=== PATIENT | female | born 1990 | race Caucasian/White ===

== ENCOUNTER 2020-06-28 17:37 | Emergency (ER) | payer OTHER, SELFPAY ==
[2020-06-28 17:38] VITALS: BP 159/89; PULSE 100; PULSE 101; RESP 16; TEMP 36.6; O2SAT 98; BMI 50.6
--- NOTE | 2020-06-28 17:48 | CT_ITS ---
STUDY: CT ABDOMEN AND PELVIS WITHOUT CONTRAST REASON FOR EXAM: Female, 29 years old. LOW ABDOMEN PAIN,NAUSEA AND VOMITING,ELEVATED WBC,PREG TEST WAS NEGATIVE -- HX:DIVERTICULITIS,PRIOR APPENDECTOMY RADIATION DOSAGE (If Supplied By Facility): CTDIvol = ( 20.40 ) mGy, DLP = ( 1264.74 ) mGycm TECHNIQUE: Transaxial images were obtained from the dome of the diaphragm to the symphysis pubis without oral contrast, and without intravenous contrast. Sagittal and coronal images were reconstructed. Individualized dose optimization techniques were used for this CT. COMPARISON: None. FINDINGS: The visualized lung bases are unremarkable. The visualized portions of the heart are within normal limits. Normal liver. Normal gallbladder and extrahepatic biliary system. Normal spleen. Normal pancreas. Normal bilateral adrenal glands. Normal right kidney. Normal left kidney. Normal visualized stomach. Normal small intestine. There is mild sigmoid diverticulosis. There is perisigmoidal fatty stranding consistent with diverticulitis. There is no evidence of extraluminal gas or abnormal fluid collection. There is non-visualization of the appendix. Normal abdominal aorta. Normal inferior vena cava. Normal retroperitoneum. Normal urinary bladder. The uterus and adnexal structures are unremarkable. Normal abdominal wall. Normal osseous structures. CT/Abdomen/Pelvis W IV Cont ONLY IMPRESSION: 1. Sigmoid diverticulosis. Perisigmoid fatty stranding consistent with diverticulitis. There is no evidence of extraluminal gas or abnormal fluid collection in the region. 2. Nonvisualization of the appendix in accordance with history of appendectomy. Electronically Signed: Sandeep Burleson MD at 19:15 EDT , Service support ,
--- NOTE | 2020-06-28 17:49 | ED.VIS.GI ---
History of Present Illness Chief Complaint: Abd Pain Informant: Patient - Abdominal Pain/Flank Pain Onset: Today Context: Gradual Onset Timing: Continuous Quality: Aching Location: Diffuse - across lower abdomen, radiating into low back, nonlateralizing Current Severity: Moderate Maximum Severity: Severe Worsened by: Nothing Relieved by: - - maybe transiently better after a normal BM 1-2 hrs ago - Nausea/Vomiting/Emesis GI Symptom: Nausea, Vomiting Onset: Today Quality: Nonbilious. Negative for: Blood streaks, Coffee ground, Hematemesis - Diarrhea/Melena/Hematochezia GI Symptom: Negative for: Diarrhea, Melena, Hematochezia Associated Symptoms: Negative for: Dysuria, Frequency, Hematuria, Urgency Narrative: Patient states she started having lower abdominal pain today, it has worsened throughout the day. She had a normal bowel movement, she has been vomiting a couple times, denies any fevers or chills. No other recent illnesses. States she has missed a period or 2, she cannot remember when her last cycle was, she cannot tell if this is menstrual cramping or not, or feels like menstrual cramping, she states she knows this pain is more severe but cannot assess the quality. She states it also may be similar to a prior episode of diverticulitis that she was treated for as an inpatient, and then finished as an outpatient. She followed up with her doctor but never was referred for a colonoscopy, which she never has had. She denies any urinary or vaginal symptoms. - Past Medical History (1) Diverticulitis Status: Resolved Past Medical History - Allergies and Home Meds Allergies/Adverse Reactions: Allergies CILLIANS Allergy (Uncoded 11/07/17 13:29) Anaphylaxis Primary Care Physician: Luis Alberto Potter NP-C [Primary Care Provider] - Surgical History: appendectomy Lives: Spouse/ Significant Other Smoking Status: Never smoker - Family History Maternal Family History: Reports: Diabetes Paternal Family History: Reports: No pertinent history Review of Systems General: Denies: Chills, Fever, Sweats Eyes: Denies: Visual changes - bilaterally, Diplopia ENT: Denies: Rhinorrhea, Sore throat Cardiovascular: Denies: Chest pain, Palpitations Respiratory: Denies: Dyspnea, Cough, Dyspnea on exertion Gastrointestinal: Reports: Abdominal pain, Nausea, Vomiting. Denies: Diarrhea, Melena, Hematochezia Genitourinary: Denies: Dysuria, Hematuria, Frequency Musculoskeletal: Reports: Back pain. Denies: Extremity Pain Skin: Denies: Rash, Wounds Neurological: Denies: Headache, Weakness, Numbness Physical Exam Vital Signs/Narrative: Vital Signs Temp Pulse Resp BP Pulse Ox 06/28/20 17:38 97.8 F 100 16 159/89 H 98 Inital Vital Signs reviewed: Yes General: Well nourished, Well developed, Obese, No Acute Distress Head: Normocephalic, Atraumatic Eyes: Perrl, EOMI ENT: Moist mucous membranes, No rhinorrhea Neck: Supple, Nontender Cardiovascular: Regular rate, Regular rhythm, No murmurs Respiratory: No distress, CTA bilaterally, Chest nontender Abdomen: Soft, Nondistended, Normal bowel sounds, Tender - Both lower quadrants and left upper quadrant without any other areas of abdominal tenderness. Negative for: Guarding, Rebound tenderness, Pulsatile mass Back: Nontender, Normal Inspection. Negative for: CVA tenderness Extremities: Nontender, No edema. Negative for: Calf Tenderness Skin: Normal color, No rash, No Trauma Neurological: Alert, Oriented x3, Cranial nerves II-XII grossly intact, Normal Strength, Normal Sensation, Normal Gait Psychological: Normal affect, Normal Mood Diagnostic/Tx/Re-eval Impressions Abdomen/Pelvis CT 06/28/20 17:48 IMPRESSION: 1. Sigmoid diverticulosis. Perisigmoid fatty stranding consistent with diverticulitis. There is no evidence of extraluminal gas or abnormal fluid collection in the region. 2. Nonvisualization of the appendix in accordance with history of appendectomy. Electronically Signed: Sandeep Burleson MD at 19:15 EDT , Service support , 06/28/20 17:48 Abdomen/Pelvis W IV Cont ONLY [CT] Stat Laboratory Results 06/28/20 06/28/20 06/28/20 18:00 18:00 18:00 WBC 12.9 H RBC 5.02 Hgb 13.7 Hct 43.2 MCV 86.1 MCH 27.3 MCHC 31.7 L RDW Std Deviation 41.7 RDW Coeff of [place] 13.4 Plt Count 258 MPV 11.1 Immature Gran % (Auto) 0.500 Neut % (Auto) 65.2 Lymph % (Auto) 22.8 [place] % (Auto) 7.3 Eos % (Auto) 3.9 Baso % (Auto) 0.3 Absolute Neuts (auto) 8.4 H Absolute Lymphs (auto) 2.94 Nucleated RBC % 0 Sodium 141 Potassium 3.5 Chloride 107 Carbon Dioxide 28.0 Anion Gap 6 BUN 15 Creatinine 0.64 Estim Creat Clear Calc 228.61 Est GFR (MDRD) Af Amer 139 Est GFR (MDRD) Non-Af 114 BUN/Creatinine Ratio 23.4 H Glucose 105 Calcium 8.3 L Serum , Qual NEGATIVE Urine Color Urine Clarity Urine pH Ur Specific [place] Urine Protein Urine Glucose (UA) Urine Ketones Urine Occult Blood Urine Nitrite Urine Bilirubin Urine Urobilinogen Ur Leukocyte Esterase 06/28/20 19:08 WBC RBC Hgb Hct MCV MCH MCHC RDW Std Deviation RDW Coeff of [place] Plt Count MPV Immature Gran % (Auto) Neut % (Auto) Lymph % (Auto) [place] % (Auto) Eos % (Auto) Baso % (Auto) Absolute Neuts (auto) Absolute Lymphs (auto) Nucleated RBC % Sodium Potassium Chloride Carbon Dioxide Anion Gap BUN Creatinine Estim Creat Clear Calc Est GFR (MDRD) Af Amer Est GFR (MDRD) Non-Af BUN/Creatinine Ratio Glucose Calcium Serum , Qual Urine Color Straw Urine Clarity Clear Urine pH 6.5 Ur Specific [place] 1.010 Urine Protein Negative Urine Glucose (UA) Normal Urine Ketones Negative Urine Occult Blood Negative Urine Nitrite Negative Urine Bilirubin Negative Urine Urobilinogen Normal Ur Leukocyte Esterase Negative - Medical Decision Making Work-up consistent with uncomplicated diverticulitis in the sigmoid colon. Treated with antibiotics, given initial IV doses here and prescriptions to go home with, she feels improved after Bentyl and Toradol along with IV fluids, and is comfortable with outpatient treatment. Discussed reasons to return. Advised to follow-up. ED Disposition - Plan for ED Patient: Disposition: Home or Assisted Living Diagnosis: Diverticulitis Instructions: ED Diverticulitis Prescriptions: Ciprofloxacin [Cipro] 500 mg PO BID #20 tab Prescription Printed Metronidazole [Flagyl] 500 mg PO BID #20 tab Prescription Printed Referrals: Luis Alberto Potter NP-C [Primary Care Provider] - 1 Week
[2020-06-28] MEDS: Dicyclomine 10 MG Capsule 20 MG PO (18:05)
[2020-06-28] MEDS: 0.9% Normal Saline 1,000 ML 1000 ML IV (18:05)
[2020-06-28] MEDS: Ondansetron 4 MG/2 ML Vial IV (18:06)
[2020-06-28] MEDS: Ketorolac 30 MG/ML Syringe IV (18:07)
[2020-06-28 18:26] LABS: Absolute Lymphocyte Count 2.94 X10^3/uL (0.83-4.51); Absolute Neutrophil Count 8.4 X10^3/uL (2.0-7.7); Basophil# 0.04 X10^3/uL; Basophil% 0.3 % (0-1); Eosinophils% 3.9 % (0-5); Hematocrit 43.2 % (37-47); Hemoglobin 13.7 g/dL (12.0-15.0); Internal QC Validated? YES +Cl - CLEAR BKGD; Lymphocyte # 2.94 X10^3/ul (4.0); Lymphocyte % 22.8 % (19-41); Mean Corp Hgb Conc 31.7 g/dL (32-36); Mean Corpuscular Hgb 27.3 pg (27.0-32.0); Mean Corpuscular Volume 86.1 fL (81-99); Mean Platelet Vol. 11.1 fl (6.2-12.0); Monocyte# 0.94 X10^3/uL; Monocyte% 7.3 % (0-10); NRBC Flagged by Analyzer 0 % (0-5); Neutrophil # 8.41 X10^3/uL (2.7-7.7); Neutrophil % 65.2 % (47-70); Platelet Count 258 K/mm3 (150-450); Pregnancy, Serum, hCG Quali. NEGATIVE Negative; RBC Distribution Width CV 13.4 % (11.6-14.6); RBC Distribution Width SD 41.7 fl (35.1-43.9); Red Blood Count 5.02 M/mm3 (4.2-5.4); White Blood Count 12.9 K/mm3 (4.4-11.0)
[2020-06-28 18:30] LABS: Anion Gap 6 (5-15); BUN 15 mg/dL (7-18); BUN/Creat Ratio 23.4 RATIO (10-20); Calcium,Total 8.3 mg/dL (8.5-10.1); Chloride 107 mmol/L (98-107); Creatinine, Serum 0.64 mg/dL (0.55-1.02); EST Glomerular Filtration Rate 114 mL/min (>60); Est Glom Filt Rate - Afr Amer 139 mL/min (>60); Estimated Creatinine Clearance 228.61 ml/min; Glucose 105 mg/dL (74-106); Potassium 3.5 mmol/L (3.5-5.1); Sodium Level 141 mmol/L (136-145)
[2020-06-28 19:14] LABS: Mucous, Urine 0 SEEN /hpf (<or=2+); Red Blood Cells-Urine 0 SEEN /hpf (0-5); White Blood Cells 0 SEEN /hpf (0-5)
[2020-06-28 19:15] LABS: Color, Urine Straw (Yellow); Glucose, Dipstick Normal (Normal); Ketone-Dipstick Negative (Negative); Leukocyte Esterase-Dipstick Negative /ul (Negative); Nitrite-Dipstick Negative (Negative); Occult Blood-Urine Negative /ul (Negative); Protein-Dipstick Negative (Negative); Urine Bilirubin Dipstick Negative (Negative); Urine Clarity Clear (Clear); Urine Urobilinogen Normal (Normal); Urine pH 6.5 (5.0 - 8.0)
[2020-06-28 19:23] LABS: Squamous Epithelial Cells - UA 0-5 SEEN /hpf (5-10)
[2020-06-28 19:24] LABS: Bacteria RARE /hpf (None Seen)
[2020-06-28] MEDS: metroNIDAZOLE 500 MG/100 ML BAG 100 MG IV (19:32)
[2020-06-28 19:41] VITALS: BP 144/71; PULSE 88; RESP 18; O2SAT 98
[2020-06-28] MEDS: Ciprofloxacin 400 MG/200 ML BAG 200 MG IV (20:32)
[2020-06-28 21:00] VITALS: RESP 17
[2020-06-28 21:38] VITALS: BP 134/74; PULSE 75; RESP 17; O2SAT 98
== END 2020-06-28 21:39 | disposition home or self-care (01) ==
PROVIDERS: Emergency Provider Emergency Medicine; PCP Nurse Practitioner Primary Care
DX: K57.32 Diverticulitis of large intestine without perforation or abscess without bleeding (principal); K57.30 Diverticulosis of large intestine without perforation or abscess without bleeding; Z90.49 Acquired absence of other specified parts of digestive tract; E66.9 Obesity, unspecified
CPT/HCPCS: 74177; 80048; 81001; 84703; 85025; 96361; 96365; 96375; 99284; J7030; J7050; Q9967; A4216; J0744; J2405